=== PATIENT | male | born 1980 | race American Indian/Alaskan Native ===

== ENCOUNTER 2016-12-17 11:55 | Emergency (ER) | payer OTHER ==
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
[2016-12-17 13:02] VITALS: BP 138/80
== END 2016-12-17 13:11 | disposition home or self-care (01) ==
LOC: ER 11:55
DX: S06.0X1A Concussion with loss of consciousness of 30 minutes or less, initial encounter (principal); W40.9XXA Explosion of unspecified explosive materials, initial encounter; Y93.H9 Activity, other involving exterior property and land maintenance, building and construction; Y92.138 Other place on military base as the place of occurrence of the external cause; Y99.0 Civilian activity done for income or pay; F17.200 Nicotine dependence, unspecified, uncomplicated
CPT/HCPCS: 70450; 99284